=== PATIENT | female | born 1945 | race Caucasian/White ===

== ENCOUNTER 2016-12-04 09:03 | Emergency (ER) | payer MEDICARE, BC ==
[2016-12-04 10:54] VITALS: BP 152/79
--- NOTE | 2016-12-06 02:44 | ER ---
DATE SEEN: 12/04/2016 TIME SEEN: The patient was seen at 0930 hours. HISTORY OF PRESENT ILLNESS: This 71-year-old woman was going to [employer]. After she got out of the car and was walking to the [employer], she experienced buzzing in her ears, and transient dizziness. She denies any fever, chills, shortness of breath, cough, chest pain, irregular heartbeat, atrial fibrillation, arrhythmias, abdominal pain, nausea, vomiting, diarrhea, or other symptoms. Her has a very straight face and a frown on his face. When I asked about this, he said his last of an aneurysm that was missed and denied by the doctor who saw her, and then one week later ended up with an aneurysm which was not treatable and she with this aneurysm. So, he is very concerned potentially his second , Desi Dixon the woman who we are seeing presently, may have an aneurysm. PAST MEDICAL HISTORY: Of previous arm fracture and hysterectomy. Otherwise, healthy. MEDICATIONS: Multivitamins, calcium carbonate with vitamin D. PAST MEDICAL HISTORY: No diabetes, heart disease, high blood pressure, asthma, or other serious illnesses or hospitalizations. No history of myocardial infarction, heart arrhythmias, PE, or coagulopathy or cancer. REVIEW OF SYSTEMS: Negative. See the HPI above. HEENT: Denies compromise of vision. CARDIORESPIRATORY: Denies irregularity of rhythm, syncope, near syncope, palpitations, pedal edema, chest pain. RESPIRATORY: Denies shortness of breath or cough. GI: Denies GERD, abdominal discomfort, nausea, vomiting, diarrhea, constipation, blood in the stool, black tarry stools. : Denies kidney stone history, or urinary tract infection symptoms of frequency, urgency, or dysuria. MUSCULOSKELETAL: Negative. No history of arthritis. PHYSICAL EXAMINATION: VITAL SIGNS: Blood pressure 164/83, heart rate 72 and regular, respirations 18, oxygen saturation 100%, and temperature is 36.4 degrees centigrade. HEENT: Alert woman, in no acute distress. She looks younger than her age. HEENT: PERRLA intact. No bruits in the neck. No thyromegaly. No cervical adenopathy. Pharynx is normal with uvula midline. Tongue is midline and mucosa in the mouth is moist. Eyegrounds normal appearance. Mild arterial narrowing of the retina. LUNGS: Clear to auscultation without rales, rhonchi, or wheezes. HEART: S1, S2. No irregularity of rhythm. ABDOMEN: Soft. No guarding. No abdominal discomfort. EXTREMITIES: Without edema. Deep tendon reflexes upper and lower extremities symmetrical 1+ normoactive. Cranial nerves 2 through 12 intact. Oriented x3. Gait intact. No pronator drift. No dysmetria. No past pointing. IMAGING: CT of the head is negative. CMP and CBC are normal. EKG is normal and troponin is negative. ASSESSMENT: Transient dizziness, etiology probably secondary to positional change. She has a split S1 without a murmur. The patient is reassured. PLAN: She plans to have a followup in a week. The patient has had a slight essential tremor. /[id number] DEREK/BRE
== END 2016-12-04 10:55 | disposition home or self-care (01) ==
LOC: FB.ED 09:03
DX: R42 Dizziness and giddiness (principal); R01.2 Other cardiac sounds; R25.1 Tremor, unspecified; Z90.710 Acquired absence of both cervix and uterus
CPT/HCPCS: 36415; 70450; 80053; 84484; 85025; 93005; 99284